=== PATIENT | male | born 1990 | race Caucasian/White ===

== ENCOUNTER 2018-10-13 16:10 | Emergency (ER) | payer SELFPAY ==
[2018-10-13 16:20] VITALS: BP 126/74
[2018-10-13] MEDS ORDERED: ONDANSETRON 4 MG TAB.RAPDIS PO ONE (16:50)
--- NOTE | 2018-10-13 16:52 | ER Document Report ---
ED Medical Screen (RME) - General Chief Complaint: Abdominal Pain Stated Complaint: ABDOMINAL PAIN Time Seen by Provider: 10/13/18 16:49 Mode of Arrival: Wheelchair Information source: Patient Notes: Patient is a 28-year-old male who presents with chief complaint of sharp upper abdominal pain. Patient reports that the pain started approximately 2 hours prior to arrival. Patient states that the pain radiates across his entire upper abdomen, describes as a tightness that is intermittent. Patient states the pain comes and is severe for about 1-2 minutes and then resolves. Patient reports mild nausea but denies any vomiting or diarrhea. Patient denies any flank pain, urinary frequency or dysuria. Exam: Abdomen soft, nontender, no guarding, no rebound. Lung sounds clear to auscultation bilaterally. No acute distress noted at the time of initial evaluation. I have greeted and performed a rapid initial assessment of this patient. A comprehensive ED assessment and evaluation of the patient, analysis of test results and completion of the medical decision making process will be conducted by additional ED providers. Dictation of this chart was performed using voice recognition software; therefore, there may be some unintended grammatical errors. TRAVEL OUTSIDE OF THE [place] IN LAST 30 DAYS: No - Related Data Allergies/Adverse Reactions: No Known Allergies Allergy (Unverified 10/13/18 16:14) Past Medical History Renal/ Medical History: Denies: Hx Peritoneal Dialysis Physical Exam - Vital signs Vitals: Temp Pulse Resp BP Pulse Ox 97.6 F 72 22 H 126/74 H 99 10/13/18 16:18 10/13/18 16:18 10/13/18 16:18 10/13/18 16:18 10/13/18 16:18 Course - Vital Signs Vital signs: Temp Pulse Resp BP Pulse Ox 97.6 F 72 22 H 126/74 H 99 10/13/18 16:18 10/13/18 16:18 10/13/18 16:18 10/13/18 16:18 10/13/18 16:18
[2018-10-13 17:50] LABS: ABSOLUTE EOSINOPHILS # (AUTO) 0.1 10^3/uL (0.0-0.6); ABSOLUTE LYMPHOCYTES (AUTO) 1.2 10^3/uL (0.5-4.7); ABSOLUTE MONOCYTES (AUTO) 0.9 10^3/uL (0.1-1.4); ABSOLUTE NEUT (AUTO) 15.6 10^3/uL (1.7-8.2); BASOPHILS % (AUTO) 0.3 % (0-2); EOSINOPHILS % (AUTO) 0.4 % (0-6); HEMATOCRIT 51.4 % (37.9-51.0); LYMPHOCYTES % (AUTO) 6.9 % (13-45); MEAN CORPUSCULAR HEMOGLOBIN 29.9 pg (27.0-33.4); MEAN CORPUSCULAR HGB CONC 34.9 g/dL (32.0-36.0); MEAN CORPUSCULAR VOLUME 86 fl (80-97); PLATELET COUNT 254 10^3/uL (150-450); RED BLOOD COUNT 6.01 10^6/uL (4.35-5.55); RED CELL DISTRIBUTION WIDTH 12.8 % (11.5-14.0); SEGMENTED NEUTROPHILS % (AUTO) 87.4 % (42-78); TOTAL CELLS COUNTED % (AUTO) 100 %; WHITE BLOOD COUNT 17.8 10^3/uL (4.0-10.5)
[2018-10-13 17:55] LABS: APPEARANCE,URINE SLIGHTLY-CLOUDY; BILIRUBIN,URINE NEGATIVE (NEGATIVE); COLOR,URINE YELLOW; GLUCOSE, URINE NEGATIVE (NEGATIVE); KETONES,URINE NEGATIVE (NEGATIVE); LEUKOCYTE ESTERASE,URINE NEGATIVE (NEGATIVE); NITRITE,URINE NEGATIVE (NEGATIVE); PROTEIN,URINE NEGATIVE (NEGATIVE); UROBILINOGEN,URINE NEGATIVE mg/dL (<2.0)
[2018-10-13 18:14] LABS: ALANINE AMINOTRANSFERASE 36 U/L (21-72); ALBUMIN 4.9 g/dL (3.5-5.0); ALKALINE PHOSPHATASE 75 U/L (38-126); ANION GAP 13 (5-19); ASPARTATE AMINO TRANSFERASE 24 U/L (17-59); BILIRUBIN,DIRECT 0.3 mg/dL (0.0-0.4); BILIRUBIN,TOTAL 0.7 mg/dL (0.2-1.3); BLOOD UREA NITROGEN 14 mg/dL (7-20); CARBON DIOXIDE 26 mmol/L (22-30); CHLORIDE 103 mmol/L (98-107); GLUCOSE 112 mg/dL (75-110); LIPASE 80.5 U/L (23-300); POTASSIUM 4.6 mmol/L (3.6-5.0); SODIUM 141.9 mmol/L (137-145); TOTAL PROTEIN 8.1 g/dL (6.3-8.2)
[2018-10-13] MEDS ORDERED: NORMAL SALINE 1000 ML 1,000 ML IV ONE ×2 (20:11→20:29)
--- NOTE | 2018-10-13 20:31 | ER Document Report ---
ED GI/ - General Chief Complaint: Abdominal Pain Stated Complaint: ABDOMINAL PAIN Time Seen by Provider: 10/13/18 16:49 Mode of Arrival: Wheelchair Information source: Patient Notes: Patient states that today around 1 PM he developed upper abdominal pain that was sharp in nature and would occasionally make him diaphoretic. Patient states that the pain resolved about an hour ago. Patient denies any nausea vomiting or diarrhea. Patient denies any cough or cold symptoms. Patient without any urinary symptoms. Last bowel movement was today and was normal. TRAVEL OUTSIDE OF THE [place] IN LAST 30 DAYS: No - HPI Patient complains to provider of: Abdominal pain Onset: This afternoon Timing/Duration: Gone Quality of pain: Sharp Severity at maximum: Severe Severity in ED: None Location: Epigastric, LUQ, RUQ Associated symptoms: Loss of appetite. denies: Constipation, Diarrhea, Dysuria , Nausea, Urinary hesitancy, Urinary frequency, Urinary urgency, Vomiting Exacerbated by: Denies Relieved by: Denies Similar symptoms previously: No Recently seen / treated by doctor: No - Related Data Allergies/Adverse Reactions: No Known Allergies Allergy (Unverified 10/13/18 16:14) Past Medical History - General Information source: Patient - Social History Smoking Status: Current Every Day Smoker Frequency of alcohol use: Occasional Drug Abuse: Marijuana Occupation: [employer] Lives with: Family Family History: Reviewed & Not Pertinent Patient has suicidal ideation: No Patient has homicidal ideation: No - Medical History Medical History: Negative Renal/ Medical History: Denies: Hx Peritoneal Dialysis GI Medical History: Denies: Hx Gastritis, Hx Gastroesophageal Reflux Disease Surgical Hx: Negative Review of Systems - Review of Systems Constitutional: No symptoms reported. denies: Fever, Recent illness EENT: No symptoms reported Cardiovascular: No symptoms reported. denies: Chest pain Respiratory: No symptoms reported. denies: Cough, Short of breath Gastrointestinal: Abdominal pain. denies: Diarrhea, Nausea, Vomiting, Constipation Genitourinary: No symptoms reported. denies: Dysuria, Flank pain Male Genitourinary: No symptoms reported Musculoskeletal: No symptoms reported. denies: Back pain Skin: No symptoms reported Hematologic/Lymphatic: No symptoms reported Neurological/Psychological: No symptoms reported Physical Exam - Vital signs Vitals: Temp Pulse Resp BP Pulse Ox 97.6 F 72 22 H 126/74 H 99 10/13/18 16:18 10/13/18 16:18 10/13/18 16:18 10/13/18 16:18 10/13/18 16:18 - General General appearance: Appears well, Alert In distress: None - HEENT Head: Normocephalic Eyes: Normal Conjunctiva: Normal Mouth/Lips: Normal Mucous membranes: Normal Pharynx: Normal Neck: Normal, Supple. No: Lymphadenopathy - Respiratory Respiratory status: No respiratory distress Chest status: Nontender Breath sounds: Normal. No: Rales, Rhonchi, Stridor, Wheezing Chest palpation: Normal - Cardiovascular Rhythm: Regular Heart sounds: S1 appreciated, S2 appreciated Murmur: No - Abdominal Inspection: Obese Distension: No distension Bowel sounds: Normal Tenderness: Nontender Organomegaly: No organomegaly - Back Back: Normal, Nontender. No: CVA tenderness - Extremities General upper extremity: Normal inspection, Nontender, Normal strength General lower extremity: Normal inspection, Nontender, Normal strength - Neurological Neuro grossly intact: Yes Cognition: Normal Iliana Coma Scale Eye Opening: Spontaneous Iliana Coma Scale Verbal: Oriented Scott Coma Scale Motor: Obeys Commands Iliana Coma Scale Total: 15 - Psychological Associated symptoms: Normal affect, Normal mood - Skin Skin Temperature: Warm Skin Moisture: Dry Skin Color: Normal Course - Re-evaluation Re-evalutation: 10/13/18 21:02 RN states that patient is not in room, not in sub-waiting area and not in the bathrooms. Suspect that patient has eloped. Patient and his family member both are not in the room at this time. 10/13/18 22:00 Patient did not return to room, suspect that patient eloped with family member - Vital Signs Vital signs: Temp Pulse Resp BP Pulse Ox 97.6 F 72 22 H 126/74 H 99 10/13/18 16:18 10/13/18 16:18 10/13/18 16:18 10/13/18 16:18 10/13/18 16:18 - Laboratory Result Diagrams: 10/13/18 17:37 10/13/18 17:37 Laboratory results interpreted by me: 10/13/18 10/13/18 10/13/18 17:37 17:37 17:37 WBC 17.8 H RBC 6.01 H Hgb 18.0 H Hct 51.4 H Seg Neutrophils % 87.4 H Lymphocytes % 6.9 L Absolute Neutrophils 15.6 H Glucose 112 H Urine Blood SMALL H 10/13/18 23:11 Labs- Entire Visit 10/13/18 10/13/18 10/13/18 17:37 17:37 17:37 WBC 17.8 H RBC 6.01 H Hgb 18.0 H Hct 51.4 H MCV 86 MCH 29.9 MCHC 34.9 RDW 12.8 Plt Count 254 Seg Neutrophils % 87.4 H Lymphocytes % 6.9 L Monocytes % 5.0 Eosinophils % 0.4 Basophils % 0.3 Absolute Neutrophils 15.6 H Absolute Lymphocytes 1.2 Absolute Monocytes 0.9 Absolute Eosinophils 0.1 Absolute Basophils 0.0 Sodium 141.9 Potassium 4.6 Chloride 103 Carbon Dioxide 26 Anion Gap 13 BUN 14 Creatinine 0.84 Est GFR ( Amer) > 60 Est GFR (Non-Af Amer) > 60 Glucose 112 H Calcium 10.0 Total Bilirubin 0.7 Direct Bilirubin 0.3 Neonat Total Bilirubin Not Reportable Neonat Direct Bilirubin Not Reportable Neonat Indirect Bili Not Reportable AST 24 ALT 36 Alkaline Phosphatase 75 Total Protein 8.1 Albumin 4.9 Lipase 80.5 Urine Color YELLOW Urine Appearance SLIGHTLY-CLOUDY Urine pH 5.0 Ur Specific [place] 1.020 Urine Protein NEGATIVE Urine Glucose (UA) NEGATIVE Urine Ketones NEGATIVE Urine Blood SMALL H Urine Nitrite NEGATIVE Urine Bilirubin NEGATIVE Urine Urobilinogen NEGATIVE Ur Leukocyte Esterase NEGATIVE Urine WBC (Auto) 2 Urine RBC (Auto) 1 Squamous Epi Cells Auto <1 Urine Mucus (Auto) RARE Urine Ascorbic Acid NEGATIVE Discharge - Discharge Clinical Impression: Abdominal pain Qualifiers: Abdominal location: upper abdomen, unspecified Qualified Code(s): R10.10 - Upper abdominal pain, unspecified Disposition: ELOPED
== END 2018-10-13 21:02 | disposition left against medical advice (07) ==
LOC: ER 16:10
DX: R10.13 Epigastric pain (principal); R10.11 Right upper quadrant pain; R10.12 Left upper quadrant pain; R61 Generalized hyperhidrosis; R63.0 Anorexia; F17.200 Nicotine dependence, unspecified, uncomplicated; F12.10 Cannabis abuse, uncomplicated; Z53.20 Procedure and treatment not carried out because of patient's decision for unspecified reasons
CPT/HCPCS: 99281; 36415; 83690; 85025; 80053; 81001; S0119